=== PATIENT | male | born 1985 | race Caucasian/White ===

== ENCOUNTER 2023-06-03 11:52 | Emergency (ER) | payer OTHER ==
[~2023-06-03] VITALS: Ht 180.3 cm; Wt 97.7 kg
[2023-06-03 12:00] VITALS: TEMP 98.6
[2023-06-03] MEDS ORDERED: LISI-894 PO (12:02)
[2023-06-03] MEDS ORDERED: IBUP-1492 PO (16:01)
[2023-06-03] MEDS ORDERED: PERCT PO (16:20)
[2023-06-03 16:40] VITALS: BP 126/86; PULSE 89; RESP 18
== END 2023-06-03 16:44 | disposition home or self-care (01) ==
LOC: EMS 11:52
DX: S83.91XA Sprain of unspecified site of right knee, initial encounter (principal); S76.111A Strain of right quadriceps muscle, fascia and tendon, initial encounter; I10 Essential (primary) hypertension; W19.XXXA Unspecified fall, initial encounter; Y93.89 Activity, other specified; Y92.89 Other specified places as the place of occurrence of the external cause; Y99.8 Other external cause status
CPT/HCPCS: 99283